=== PATIENT | male | born 1990 | race Caucasian/White ===

== ENCOUNTER 2019-11-23 04:12 | Emergency (ER) | payer SELFPAY ==
[~2019-11-23] VITALS: Ht 193 cm; Wt 102.1 kg
[2019-11-23 04:25] VITALS: BP 150/71
--- NOTE | 2019-11-23 04:30 | NUR ---
BIBS FOR C/O H/A, HEAVY BREATHING, FATIGUE, MUSCLE SORENESS, AND INABILITY TO SLEEP DUE TO POSSIBLE METH INGESTION AT 0000. PT AAOX4, RESPIRATIONS EVEN AND UNLABORED ON RA W/ NAD NOTED. PT CONNECTED TO THE MONITOR AND POX
--- NOTE | 2019-11-23 04:55 | NUR ---
Patient discharged to home in stable condition. Written and verbal after care instructions given. Patient verbalizes understanding of instruction.
== END 2019-11-23 04:56 | disposition home or self-care (01) ==
LOC: ER 04:16
DX: G47.00 Insomnia, unspecified (principal)

== ENCOUNTER 2021-12-03 15:54 | Emergency (ER) | payer SELFPAY ==
[~2021-12-03] VITALS: Ht 182.9 cm; Wt 95.3 kg
[2021-12-03] MEDS ORDERED: ONDANSETRON HCL/PF 4 MG/2 ML VIAL IVP ONE (16:30)
[2021-12-03] MEDS ORDERED: MAG HYDROX/AL HYDROX/SIMETH 30 ML UDC PO ONE (16:30)
[2021-12-03] MEDS ORDERED: IV NS 0.9% 1,000 ML BAG IV ONE (16:30)
[2021-12-03] MEDS ORDERED: LIDOCAINE VISCOUS 2% UD 15 ML UDC MM ONE (16:30)
--- NOTE | 2021-12-03 16:45 | NUR ---
REFUSED BLOOD DRAW. MADE END POLISHER AWARE
[2021-12-03 16:57] VITALS: BP 126/68
--- NOTE | 2021-12-03 17:00 | NUR ---
IV removed. Catheter intact and site benign. Pressure and 4x4 applied to site. No bleeding noted.
--- NOTE | 2021-12-03 17:02 | NUR ---
Patient does not wish to proceed with medical care recommended by KIMO JACKSON NP. Patient given information related to possible complications, up to and including , which could occur as a result of leaving the hospital at this time. Patient verbalizes understanding of risks involved due to leaving against medical advice. Patient has signed AMA form.
== END 2021-12-03 17:24 | disposition left against medical advice (07) ==
LOC: ER 15:59
DX: R11.2 Nausea with vomiting, unspecified (principal); R10.13 Epigastric pain